=== PATIENT | female | born 1950 | race Caucasian/White ===

== ENCOUNTER 2018-02-19 10:23 | Observation (INO) | payer MEDICARE, OTHER ==
[2018-02-19] MEDS: LACTATED RINGER'S 1,000 ML IV ×2 (12:42→18:37)
[2018-02-19] MEDS ORDERED: CEFAZOLIN 1 GM INJ (12:43)
[2018-02-19] MEDS ORDERED: LIDOCAINE 2% (SDV) 5 ML INJ (12:43)
[2018-02-19] MEDS ORDERED: PROPOFOL 20 ML (12:43)
[2018-02-19] MEDS ORDERED: BUPIVACAINE 0.75%/DEXT (SPINAL) 2 ML INJ (12:46)
[2018-02-19] MEDS ORDERED: NA PHOSPHATE/BIPHOS 133 ML ENEMA PR (13:00)
[2018-02-19] MEDS ORDERED: KETOROLAC 15 MG INJ IV (13:00)
[2018-02-19] MEDS ORDERED: BETHANECHOL 25 MG TAB PO (13:00)
[2018-02-19] MEDS ORDERED: oxyCODONE 5 MG TAB PO (13:00)
[2018-02-19] MEDS ORDERED: DIPHENHYDRAMINE 50 MG INJ IV ×2 (13:00→15:00)
[2018-02-19] MEDS ORDERED: BISACODYL 10 MG SUPP PR (13:00)
[2018-02-19] MEDS ORDERED: SENNA/DOCUSATE NA (8.6MG/50MG) TAB PO (13:00)
[2018-02-19] MEDS ORDERED: NALOXONE (0.4 MG/ML) INJ IV (13:00)
[2018-02-19] MEDS ORDERED: MAGNESIUM HYDROXIDE 30ML CUP PO (13:00)
[2018-02-19] MEDS: CEFAZOLIN 2 GM/50 ML (PMX) 50 ML (FOR WT < 120 KG) IVPB (13:05)
[2018-02-19] MEDS ORDERED: METOCLOPRAMIDE 10 MG INJ (13:29)
[2018-02-19] MEDS ORDERED: ONDANSETRON 4 MG INJ (13:29)
[2018-02-19] MEDS: TRANEXAMIC ACID 1,000 MG in D5W 100 ML AT INCISION X1 IVPB (13:30)
[2018-02-19] MEDS: BACITRACIN 50000 UNITS INJ (13:37)
[2018-02-19] MEDS: POLYMYXIN B 500000 UNIT INJ (13:38)
[2018-02-19] MEDS ORDERED: ROPIVACAINE 0.5 % 30 ML VIAL (14:22)
[2018-02-19] MEDS: TRANEXAMIC ACID 1,000 MG in D5W 100 ML AT CLOSURE X1 IVPB (14:30)
[2018-02-19] MEDS ORDERED: EPHEDrine SULFATE 50 MG/5 ML SYG IV (15:00)
[2018-02-19] MEDS ORDERED: MIDAZOLAM 1 MG/ML 2 ML INJ IV (15:00)
[2018-02-19] MEDS ORDERED: FENTAnyl 50 MCG/ML VIAL IV ×3 (15:00)
[2018-02-19] MEDS ORDERED: METOCLOPRAMIDE 10 MG INJ IV (15:00)
[2018-02-19] MEDS ORDERED: MEPERIDINE 25 MG INJ IV (15:00)
[2018-02-19] MEDS ORDERED: HYDROmorphONE 1 MG/5 ML IV SYRINGE IV ×3 (15:00)
[2018-02-19] MEDS ORDERED: LABETALOL HCL 20MG INJ IV (15:00)
[2018-02-19] MEDS ORDERED: OXYCODONE/ACETAMINOPHEN (5/325) TAB PO ×2 (15:00)
[2018-02-19] MEDS ORDERED: hydrALAzine 20 MG INJ IV (15:00)
[2018-02-19] MEDS ORDERED: ONDANSETRON 4 MG INJ IV (15:00)
[2018-02-19] MEDS: CEFAZOLIN 1 GM/50 ML (PMX) 50 ML IVPB ×2 (15:19→23:27)
[2018-02-19] MEDS: SOD CHLORIDE 0.9% 1,000 ML IV (15:19)
[2018-02-19] MEDS: ONDANSETRON 4 MG INJ IV ×2 (15:20→19:00)
[2018-02-19] MEDS: DOCUSATE SODIUM 100 MG CAP PO (15:20)
[2018-02-19] MEDS: ASPIRIN (EC) 325 MG TAB PO (15:20)
[2018-02-19] MEDS: oxyCODONE 5 MG TAB PO (18:01)
[2018-02-19] MEDS: traZODone 50 MG TAB PO (20:31)
[2018-02-19] MEDS: CELECOXIB 100 MG CAP PO (20:39)
[2018-02-19] MEDS: GABAPENTIN 100 MG CAP PO (20:39)
[2018-02-20] MEDS: ONDANSETRON 4 MG INJ IV ×2 (01:00→07:00)
[2018-02-20] MEDS: LACTATED RINGER'S 1,000 ML IV ×2 (02:00→10:00)
[2018-02-20] MEDS: SOD CHLORIDE 0.9% 1,000 ML IV ×2 (02:26→13:58)
[2018-02-20 05:07] LABS: WHITE BLOOD COUNT 9.3 10^3/ul (4.8-10.8)
[2018-02-20 05:07] LABS: ADD MAN DIFF? NO; BASOPHILS % 0.4 % (0.0-2.0); EOSINOPHILS % 0.4 % (0.0-7.0); HEMATOCRIT 35.4 % (37.0-47.0); HEMOGLOBIN 11.5 g/dl (12.0-16.0); LYMPHOCYTES # 1.1 10^3/ul (0.8-2.9); LYMPHOCYTES % 12.1 % (15.0-51.0); MEAN CORPUSCULAR HGB CONC 32.5 g/dl (32.0-37.0); MEAN CORPUSCULAR VOLUME 92.4 fl (82.0-101.0); MEAN PLATELET VOLUME 9.4 fl (7.4-10.4); MONOCYTES % 11.2 % (0.0-11.0); NEUTROPHILS % 75.7 % (39.0-77.0); PLATELET COUNT 193 10^3/UL (140-415); RED BLOOD COUNT 3.83 10^6/ul (4.20-5.40)
[2018-02-20 05:43] LABS: ANION GAP 8 (8-16); BLOOD UREA NITROGEN 13 mg/dl (7-20); CALCIUM 8.3 mg/dl (8.4-10.2); CARBON DIOXIDE 26 mmol/L (21-31); CHLORIDE 109 mmol/L (97-110); CREATININE 0.55 mg/dl (0.44-1.00); GLUCOSE 125 mg/dl (70-220); POTASSIUM 4.2 mmol/L (3.5-5.1); SODIUM 139 mmol/L (135-144)
[2018-02-20] MEDS: CEFAZOLIN 1 GM/50 ML (PMX) 50 ML IVPB (07:29)
[2018-02-20] MEDS: FERROUS FUMARATE (SR) TAB PO (09:12)
[2018-02-20] MEDS: CELECOXIB 100 MG CAP PO (09:12)
[2018-02-20] MEDS: GABAPENTIN 100 MG CAP PO (09:12)
[2018-02-20] MEDS: ASPIRIN (EC) 325 MG TAB PO (09:12)
[2018-02-20] MEDS: DOCUSATE SODIUM 100 MG CAP PO (09:12)
[2018-02-20] MEDS: oxyCODONE 5 MG TAB PO ×3 (09:15→17:47)
[2018-02-20 10:04] LABS: CHOLESTEROL 134 mg/dl (100-200)
[2018-02-20 10:04] LABS: CHOL/HDL RATIO 3.9 RATIO; HDL CHOLESTEROL 34 mg/dl (33-92); LDL CHOLESTEROL,CALCULATED 79 mg/dl; TRIGLYCERIDES 103 mg/dl (0-149)
[2018-02-20] MEDS: ONDANSETRON 4 MG TAB PO (14:21)
[2018-02-20] MEDS ORDERED: ATORVASTATIN 10 MG TAB PO (21:00)
[2018-02-21] MEDS ORDERED: PANTOPRAZOLE (EC) 40 MG TAB PO (06:00)
== END 2018-02-20 18:55 | disposition home health service (06) ==
LOC: SDS 10:23 → REC 12:58 → MS1 16:33
DX: M17.11 Unilateral primary osteoarthritis, right knee (principal); G47.00 Insomnia, unspecified; E78.5 Hyperlipidemia, unspecified
CPT/HCPCS: 27447; 73560; 80048; 80061; 85025; 86850; 86900; 86901; 87081; 88304; 88311; 97110; 97116; 97162

== ENCOUNTER 2018-05-21 05:25 | Observation (INO) | payer MEDICARE, OTHER ==
[2018-05-21] MEDS ORDERED: LACTATED RINGER'S 1,000 ML IV (06:00)
[2018-05-21] MEDS: LACTATED RINGER'S 1,000 ML IV (06:09)
[2018-05-21] MEDS ORDERED: CEFAZOLIN 1 GM INJ (07:00)
[2018-05-21] MEDS ORDERED: EPHEDrine SULFATE 50 MG/5 ML SYG (07:00)
[2018-05-21] MEDS ORDERED: BUPIVACAINE 0.75%/DEXT (SPINAL) 2 ML INJ (07:29)
[2018-05-21] MEDS ORDERED: PROPOFOL 20 ML (07:29)
[2018-05-21] MEDS ORDERED: LIDOCAINE 2% (SDV) 5 ML INJ (07:29)
[2018-05-21] MEDS ORDERED: ROPIVACAINE 0.5 % 30 ML VIAL (07:29)
[2018-05-21] MEDS ORDERED: NALOXONE (0.4 MG/ML) INJ IV (07:30)
[2018-05-21] MEDS ORDERED: SENNA/DOCUSATE NA (8.6MG/50MG) TAB PO (07:30)
[2018-05-21] MEDS ORDERED: DIPHENHYDRAMINE 50 MG INJ IV ×2 (07:30→10:00)
[2018-05-21] MEDS ORDERED: oxyCODONE 5 MG TAB PO (07:30)
[2018-05-21] MEDS ORDERED: NA PHOSPHATE/BIPHOS 133 ML ENEMA PR (07:30)
[2018-05-21] MEDS ORDERED: BETHANECHOL 25 MG TAB PO (07:30)
[2018-05-21] MEDS ORDERED: MAGNESIUM HYDROXIDE 30ML CUP PO (07:30)
[2018-05-21] MEDS ORDERED: BISACODYL 10 MG SUPP PR (07:30)
[2018-05-21] MEDS: ASPIRIN (EC) 325 MG TAB PO (07:30)
[2018-05-21] MEDS ORDERED: METOCLOPRAMIDE 10 MG INJ (07:31)
[2018-05-21] MEDS ORDERED: ONDANSETRON 4 MG INJ (07:31)
[2018-05-21] MEDS ORDERED: MIDAZOLAM 1 MG/ML 2 ML INJ (07:46)
[2018-05-21] MEDS: POLYMYXIN B 500000 UNIT INJ (08:29)
[2018-05-21] MEDS: BACITRACIN 50000 UNITS INJ (08:29)
[2018-05-21] MEDS ORDERED: EPHEDrine SULFATE 50 MG/5 ML SYG IV (10:00)
[2018-05-21] MEDS ORDERED: FENTAnyl 50 MCG/ML VIAL IV ×3 (10:00)
[2018-05-21] MEDS ORDERED: hydrALAzine 20 MG INJ IV (10:00)
[2018-05-21] MEDS ORDERED: LABETALOL HCL 20MG INJ IV (10:00)
[2018-05-21] MEDS ORDERED: OXYCODONE/ACETAMINOPHEN (5/325) TAB PO ×2 (10:00)
[2018-05-21] MEDS ORDERED: MIDAZOLAM 1 MG/ML 2 ML INJ IV (10:00)
[2018-05-21] MEDS ORDERED: MEPERIDINE 25 MG INJ IV (10:00)
[2018-05-21] MEDS ORDERED: HYDROmorphONE 1 MG/5 ML IV SYRINGE IV ×3 (10:00)
[2018-05-21] MEDS ORDERED: METOCLOPRAMIDE 10 MG INJ IV (10:00)
[2018-05-21] MEDS ORDERED: ONDANSETRON 4 MG INJ IV (10:00)
[2018-05-21] MEDS ORDERED: CEFAZOLIN 1 GM/50 ML (PMX) 50 ML IVPB (10:02)
[2018-05-21] MEDS: DOCUSATE SODIUM 100 MG CAP PO (10:04)
[2018-05-21] MEDS: ONDANSETRON 4 MG INJ IV ×3 (10:05→20:22)
[2018-05-21] MEDS: CEFAZOLIN 1 GM/50 ML (PMX) 50 ML IVPB ×2 (10:05→21:09)
[2018-05-21] MEDS: TRANEXAMIC ACID 1,000 MG in D5W 100 ML AT INCISION X1 IVPB (10:06)
[2018-05-21] MEDS: CEFAZOLIN 2 GM/50 ML (PMX) 50 ML (FOR WT < 120 KG) IVPB (10:06)
[2018-05-21] MEDS: TRANEXAMIC ACID 1,000 MG in D5W 100 ML AT CLOSURE X1 IVPB (10:06)
[2018-05-21] MEDS: SOD CHLORIDE 0.9% 1,000 ML IV ×2 (11:40→19:45)
[2018-05-21] MEDS: GABAPENTIN 100 MG CAP PO ×2 (12:19→20:21)
[2018-05-21] MEDS: oxyCODONE 5 MG TAB PO ×2 (12:21→19:10)
[2018-05-21] MEDS: CELECOXIB 100 MG CAP PO ×2 (17:36→21:00)
[2018-05-21] MEDS: ATORVASTATIN 20 MG TAB PO (20:20)
[2018-05-21] MEDS: traZODone 50 MG TAB PO (20:21)
[2018-05-22] MEDS: ONDANSETRON 4 MG INJ IV (01:30)
[2018-05-22] MEDS: oxyCODONE 5 MG TAB PO ×2 (03:39→08:41)
[2018-05-22 05:09] LABS: ADD MAN DIFF? NO
[2018-05-22] MEDS: CEFAZOLIN 1 GM/50 ML (PMX) 50 ML IVPB (05:16)
[2018-05-22 05:51] LABS: BASOPHILS % 0.4 % (0.0-2.0); EOSINOPHILS # 0.1 10^3/ul (0.0-0.5); EOSINOPHILS % 1.4 % (0.0-7.0); HEMATOCRIT 33.7 % (37.0-47.0); HEMOGLOBIN 10.9 g/dl (12.0-16.0); LYMPHOCYTES # 1.5 10^3/ul (0.8-2.9); LYMPHOCYTES % 20.2 % (15.0-51.0); MEAN CORPUSCULAR HEMOGLOBIN 29.8 pg (29.0-33.0); MEAN CORPUSCULAR HGB CONC 32.3 g/dl (32.0-37.0); MEAN CORPUSCULAR VOLUME 92.1 fl (82.0-101.0); MONOCYTE # 1.1 10^3/ul (0.3-0.9); NEUTROPHIL # 4.8 10^3/ul (1.6-7.5); NEUTROPHILS % 63.7 % (39.0-77.0); PLATELET COUNT 178 10^3/UL (140-415); RED BLOOD COUNT 3.66 10^6/ul (4.20-5.40); RED CELL DISTRIBUTION WIDTH 13.7 % (11.5-14.5)
[2018-05-22 05:51] LABS: WHITE BLOOD COUNT 7.6 10^3/ul (4.8-10.8)
[2018-05-22 06:17] LABS: ANION GAP 7 (8-16); BLOOD UREA NITROGEN 10 mg/dl (7-20); CALCIUM 8.2 mg/dl (8.4-10.2); CARBON DIOXIDE 29 mmol/L (21-31); CHLORIDE 106 mmol/L (97-110); CREATININE 0.67 mg/dl (0.44-1.00); GLUCOSE 107 mg/dl (70-220); POTASSIUM 4.4 mmol/L (3.5-5.1); SODIUM 138 mmol/L (135-144)
[2018-05-22] MEDS: SOD CHLORIDE 0.9% 1,000 ML IV ×2 (08:15→20:45)
[2018-05-22] MEDS: ASPIRIN (EC) 325 MG TAB PO (08:40)
[2018-05-22] MEDS: FERROUS FUMARATE (SR) TAB PO ×2 (08:40→20:17)
[2018-05-22] MEDS: DOCUSATE SODIUM 100 MG CAP PO ×2 (08:41→20:16)
[2018-05-22] MEDS: GABAPENTIN 100 MG CAP PO ×2 (08:41→20:17)
[2018-05-22] MEDS: CELECOXIB 100 MG CAP PO ×2 (08:41→20:17)
[2018-05-22] MEDS ORDERED: ACETAMINOPHEN 500 MG TAB PO (13:00)
[2018-05-22] MEDS: ACETAMINOPHEN 500 MG TAB PO ×2 (13:33→20:16)
[2018-05-22] MEDS: traZODone 50 MG TAB PO (20:16)
[2018-05-22] MEDS: ATORVASTATIN 20 MG TAB PO (20:17)
[2018-05-23] MEDS: PANTOPRAZOLE (EC) 40 MG TAB PO (05:11)
[2018-05-23] MEDS: ACETAMINOPHEN 500 MG TAB PO ×3 (05:11→16:00)
[2018-05-23 05:26] LABS: ADD MAN DIFF? NO
[2018-05-23 05:36] LABS: BASOPHILS % 0.3 % (0.0-2.0); EOSINOPHILS # 0.2 10^3/ul (0.0-0.5); EOSINOPHILS % 2.1 % (0.0-7.0); HEMATOCRIT 33.4 % (37.0-47.0); HEMOGLOBIN 10.7 g/dl (12.0-16.0); LYMPHOCYTES # 1.7 10^3/ul (0.8-2.9); MEAN CORPUSCULAR HEMOGLOBIN 29.6 pg (29.0-33.0); MEAN CORPUSCULAR VOLUME 92.3 fl (82.0-101.0); MEAN PLATELET VOLUME 10.2 fl (7.4-10.4); NEUTROPHIL # 4.7 10^3/ul (1.6-7.5); NEUTROPHILS % 62.3 % (39.0-77.0); PLATELET COUNT 190 10^3/UL (140-415); RED BLOOD COUNT 3.62 10^6/ul (4.20-5.40); RED CELL DISTRIBUTION WIDTH 13.6 % (11.5-14.5)
[2018-05-23 05:36] LABS: WHITE BLOOD COUNT 7.5 10^3/ul (4.8-10.8)
[2018-05-23 05:54] LABS: ANION GAP 10 (8-16); BLOOD UREA NITROGEN 11 mg/dl (7-20); CALCIUM 8.6 mg/dl (8.4-10.2); CARBON DIOXIDE 28 mmol/L (21-31); CHLORIDE 105 mmol/L (97-110); CREATININE 0.73 mg/dl (0.44-1.00); GLUCOSE 115 mg/dl (70-220); POTASSIUM 4.2 mmol/L (3.5-5.1); SODIUM 139 mmol/L (135-144)
[2018-05-23 05:56] LABS: MAGNESIUM 2.1 mg/dl (1.7-2.5)
[2018-05-23 05:56] LABS: PHOSPHORUS 4.4 mg/dl (2.5-4.9)
[2018-05-23] MEDS: CELECOXIB 100 MG CAP PO (08:52)
[2018-05-23] MEDS: ASPIRIN (EC) 325 MG TAB PO (08:52)
[2018-05-23] MEDS: FERROUS FUMARATE (SR) TAB PO (08:52)
[2018-05-23] MEDS: DOCUSATE SODIUM 100 MG CAP PO (08:52)
[2018-05-23] MEDS: GABAPENTIN 100 MG CAP PO (08:53)
[2018-05-23] MEDS: SOD CHLORIDE 0.9% 1,000 ML IV (09:13)
== END 2018-05-23 16:00 | disposition home health service (06) ==
LOC: REC 05:25 → MS1 11:37
DX: M17.12 Unilateral primary osteoarthritis, left knee (principal); E78.5 Hyperlipidemia, unspecified; G47.00 Insomnia, unspecified
CPT/HCPCS: 27447; 73560; 80048; 83735; 84100; 85025; 86850; 86900; 86901; 87081; 88304; 97110; 97116; 97161; 97166; 97530; 99217